=== PATIENT | male | born 1990 | race African-American/Black ===

== ENCOUNTER 2017-02-06 01:41 | Emergency (ER) | payer MEDICAID ==
[~2017-02-06] VITALS: Ht 160 cm; Wt 68.0 kg
[~2017-02-06 01:41] MED LIST: INSUINJ; INSUINJ2; OFLOXACIN
[2017-02-06 04:56] LABS: Basophils # (auto) 0 uL; Basophils % (auto) 0.1 % (0.0-2.0); Eosinophils # (auto) 0 uL; Hematocrit 42.8 % (41.0-53.0); Hemoglobin 14.8 g/dL (13.5-17.5); Lymphocytes # (auto) 1.7 uL; Lymphocytes % (auto) 11.2 % (10.0-50.0); Mean Corpuscular Hemoglobin 29.6 pg (28.0-32.0); Mean Corpuscular Hgb Conc. 34.5 g/dL (32.0-36.0); Mean Platelet Volume 7.9 fL (7.4-10.4); Monocytes # (auto) 0.3 uL; Monocytes % (auto) 2.2 % (0.0-12.0); Neutrophils # (auto) 12.9 uL; Neutrophils % (auto) 86.5 % (37.0-80.0); Platelet Count (auto) 559 10^3/uL (140-450); Red Cell Distribution Width 12.8 % (11.6-16.0); White Blood Cell 14.9 10^3/uL (4.4-10.8)
[2017-02-06] MEDS ORDERED: cloNIDine HCL 0.1 MG TAB PO ONE ×2 (05:00→05:15)
[2017-02-06] MEDS ORDERED: SODIUM CHLORIDE 0.9% 1,000 ML IV ONE (05:15)
[2017-02-06 05:16] LABS: Albumin 2.2 g/dL (3.4-5.0); BUN/Creatinine Ratio 12.6; Calcium 9.2 mg/dL (8.5-10.1)
[2017-02-06] MEDS ORDERED: ONDANSETRON HCL 4 MG/2 ML VIAL ONE (05:18)
[2017-02-06 05:20] LABS: Bilirubin, Total 0.1 mg/dL (0.2-1.0); Total Protein 7.2 g/dL (6.4-8.2)
[2017-02-06 05:29] LABS: Urine Bilirubin Negative (Negative); Urine Color Yellow (Yellow); Urine Hyaline Cast FEW /lpf (0 - 2); Urine Ketone Negative (Negative); Urine Nitrite Negative (Negative); Urine RBC 2 /hpf (0 - 3); Urine Squamous Epithelial Cell FEW /hpf (<5); Urine Urobilinogen Normal (Negative)
[2017-02-06] MEDS ORDERED: ONDANSETRON HCL 4 MG/2 ML VIAL IV ONE (05:30)
[2017-02-06 05:43] LABS: Urine Blood 1+ /uL (Negative); Urine Glucose 4+ mg/dL (Normal)
[2017-02-06] MEDS ORDERED: HYDROmorphone HCL 2 MG/ML VL IV ONE (05:45)
[2017-02-06] MEDS ORDERED: ALUM & MAG HYDROX-SIMETH LIQ(MAALOX) 30 ML PO ONE (10:45)
[2017-02-06] MEDS ORDERED: LIDOCAINE VISCOUS 2% 15ML UD PO ONE (10:45)
[2017-02-06] MEDS ORDERED: DONNATAL 5ml ORAL Elix (BELLADONNA ALK-PHENOBARB) PO ONE (10:45)
[2017-02-06] MEDS ORDERED: FAMOTIDINE 20 MG TAB PO ONE (10:45)
[2017-02-06 11:50] VITALS: BP 162/108
== END 2017-02-06 13:46 | disposition home or self-care (01) ==
LOC: ER 01:44
DX: E11.649 Type 2 diabetes mellitus with hypoglycemia without coma (principal); G93.41 Metabolic encephalopathy; Z79.4 Long term (current) use of insulin; K29.20 Alcoholic gastritis without bleeding; E43 Unspecified severe protein-calorie malnutrition; Z68.26 Body mass index [BMI] 26.0-26.9, adult; R80.9 Proteinuria, unspecified; F12.10 Cannabis abuse, uncomplicated; F14.10 Cocaine abuse, uncomplicated; F15.10 Other stimulant abuse, uncomplicated; Z88.6 Allergy status to analgesic agent
CPT/HCPCS: 36415; 74176; 80053; 80307; 80320; 81001; 82962; 85025; 96361; 96374; 96375; 99285; J1170; J2405; J7030

== ENCOUNTER 2017-12-11 21:00 | Emergency (ER) | payer MEDICAID ==
[~2017-12-11] VITALS: Ht 165.1 cm; Wt 95.3 kg
[2017-12-11] MEDS ORDERED: DEXTROSE 50% SYRINGE 50 ML IV ONE (21:25)
[2017-12-11] MEDS ORDERED: cloNIDine HCL 0.1 MG TAB ONE (21:46)
[2017-12-11 21:57] LABS: Eosinophils # (auto) 0.6 uL; Hemoglobin 11.9 g/dL (13.5-17.5); Neutrophils # (auto) 7.4 uL; White Blood Cell 11.9 10^3/uL (4.4-10.8)
[2017-12-11 22:00] LABS: Basophils # (auto) 0 uL; Basophils % (auto) 0.3 % (0.0-2.0); Eosinophils % (auto) 5.1 % (0.0-7.0); Hematocrit 36.2 % (41.0-53.0); Lymphocytes # (auto) 3.1 uL; Lymphocytes % (auto) 25.9 % (10.0-50.0); Mean Corpuscular Hemoglobin 29.4 pg (28.0-32.0); Mean Corpuscular Hgb Conc. 32.8 g/dL (32.0-36.0); Mean Corpuscular Volume 89.6 fL (80.0-100.0); Monocytes # (auto) 0.8 uL; Monocytes % (auto) 6.3 % (0.0-12.0); Neutrophils % (auto) 62.4 % (37.0-80.0); Platelet Count (auto) 466 10^3/uL (140-450); Red Blood Cells 4.03 10^6/uL (4.5-5.90); Red Cell Distribution Width 16.1 % (11.8-14.3)
[2017-12-11 22:20] LABS: Albumin 2.3 g/dL (3.4-5.0); Calcium 8.8 mg/dL (8.5-10.1); Potassium 4.2 mmol/L (3.5-5.1)
[2017-12-11 22:24] LABS: BUN/Creatinine Ratio 3.7
[2017-12-11 22:26] LABS: Bilirubin, Total 0.2 mg/dL (0.2-1.0); Total Protein 7.2 g/dL (6.4-8.2)
[2017-12-11] MEDS ORDERED: DEXTROSE 10% 1,000 ML IV ONE (22:45)
[2017-12-12] MEDS ORDERED: ACETAMINOPHEN 325 MG TAB PO ONE (02:45)
[2017-12-12] MEDS ORDERED: LABETALOL HCL 200 MG TAB PO ONE (03:00)
[2017-12-12 03:26] LABS: Urine Bacteria FEW /hpf (None Seen); Urine Blood Negative /uL (Negative); Urine Hyaline Cast FEW /lpf (0 - 2); Urine Specific Gravity 1.017 (1.001-1.035); Urine WBC 4 /hpf (0 - 3)
[2017-12-12 03:32] LABS: Alcohol, Urine < 3.0 mg/dL (0-5); Amphetamine Screen, Urine NEGATIVE (NEGATIVE); Barbiturate Scree,Urine NEGATIVE (NEGATIVE); Benzodiazephine Screen, Urine NEGATIVE (NEGATIVE); Cannabinoid Screen, Urine POSITIVE (NEGATIVE); Cocaine Screen, Urine NEGATIVE (NEGATIVE); Opiate Scree,Urine NEGATIVE (NEGATIVE); Phencyclidine Screen, Urine NEGATIVE (NEGATIVE)
[2017-12-12 03:36] VITALS: BP 169/113
== END 2017-12-12 04:01 | disposition home or self-care (01) ==
LOC: EDBD 21:00 → ER 21:04
DX: R41.82 Altered mental status, unspecified (principal); E11.649 Type 2 diabetes mellitus with hypoglycemia without coma; I12.0 Hypertensive chronic kidney disease with stage 5 chronic kidney disease or end stage renal disease; E11.22 Type 2 diabetes mellitus with diabetic chronic kidney disease; N18.6 End stage renal disease; F12.10 Cannabis abuse, uncomplicated; Z88.8 Allergy status to other drugs, medicaments and biological substances; Z99.2 Dependence on renal dialysis
CPT/HCPCS: 36415; 71045; 80053; 80307; 81001; 82962; 85025; 93005; 96365; 96366; 99285; J7042

== ENCOUNTER 2018-01-29 10:07 | Emergency (ER) | payer MEDICAID ==
[~2018-01-29] VITALS: Ht 172.7 cm; Wt 81.6 kg
[2018-01-29 10:56] VITALS: BP 0/0
== END 2018-01-29 14:40 | disposition expired ==
LOC: ER 10:07 → EDUNIT# 10:07 → ER 14:40
DX: I46.9 Cardiac arrest, cause unspecified (principal); E11.22 Type 2 diabetes mellitus with diabetic chronic kidney disease; I12.0 Hypertensive chronic kidney disease with stage 5 chronic kidney disease or end stage renal disease; N18.6 End stage renal disease; N17.9 Acute kidney failure, unspecified; Z99.2 Dependence on renal dialysis; Z79.4 Long term (current) use of insulin
CPT/HCPCS: 31500; 92950